=== PATIENT | male | born 1990 | race Caucasian/White ===

== ENCOUNTER 2021-08-21 21:56 | Emergency (ER) | payer SELFPAY ==
[~2021-08-21] VITALS: Ht 160 cm; Wt 67.3 kg
[~2021-08-21 21:56] MED LIST: ASPI-825 PO
[2021-08-21] MEDS ORDERED: ALLO-45 PO (22:15)
[2021-08-21 22:49] LABS: BASOPHILS % (AUTO) 0.6 % (0.0-2.0); EOSINOPHILS % (AUTO) 1.4 % (1.0-6.0); HEMATOCRIT 49.4 % (41-53); HEMOGLOBIN 17.1 g/dL (13.5-17.5); LYMPHOCYTES # (AUTO) 2.6 K/uL (1.0-4.8); LYMPHOCYTES % (AUTO) 34.3 % (22.0-44.0); MEAN CORPUSCULAR HEMOGLOBIN 30.7 pg (26.0-34.0); MEAN CORPUSCULAR HGB CONC 34.5 G/dL (31.0-37.0); MEAN CORPUSCULAR VOLUME 89 fL (80-100); MONOCYTES % (AUTO) 13.3 % (2.0-9.0); NEUTROPHILS # (AUTO) 3.9 K/uL (1.8-7.7); NEUTROPHILS % (AUTO) 50.4 % (40.0-70.0); PLATELET COUNT (AUTO) 348 K/uL (150-450); RED BLOOD CELL COUNT(AUTO) 5.56 MIL/uL (4.50-5.90); RED CELL DISTRIBUTION WIDTH 12.9 % (11.5-14.5)
[2021-08-21 22:59] LABS: ANION GAP 7 mmol/L (8-16); CALCIUM, TOTAL 9.3 mg/dL (8.8-10.5); CARBON DIOXIDE 26 mmol/L (22-29); CHLORIDE 101 mmol/L (98-107); CREATININE 0.99 mg/dL (0.60-1.30); GLOMERULAR FILTR. RATE CALC > 60 mL/min (>60); GLUCOSE,RANDOM 106 mg/dL (70-110); POTASSIUM 3.7 mmol/L (3.5-5.1); SODIUM SERUM 134 mmol/L (136-145); UREA NITROGEN, BLOOD 18 mg/dL (7-18)
[2021-08-21 23:02] LABS: PROTHROMBIN TIME 10.7 SEC (9.4-11.6)
[2021-08-21 23:05] LABS: ALANINE AMINOTRANSFERASE 130 U/L (12-78); ALBUMIN 4.1 g/dL (3.4-5.0); ALKALINE PHOSPHATASE 134 U/L (46-116); ASPARTATE AMINOTRANSFERASE 68 U/L (15-37); BILIRUBIN,TOTAL 0.9 mg/dL (0.1-1.0); TOTAL PROTEIN, SERUM 8.1 g/dL (6.4-8.2)
[2021-08-21] MEDS ORDERED: ACYCLOVIR 200 MG CAPSULE PO ONE (23:45)
[2021-08-21] MEDS ORDERED: PredniSONE 20 MG TABLET PO ONE (23:45)
[2021-08-22] VITALS: BP 140/89
[2021-08-22] MEDS ORDERED: HYPROMELLOSE 0.5% 15 ML OPHTHALMIC SOLUTION OS ONE
== END 2021-08-22 01:01 | disposition home or self-care (01) ==
LOC: EMS 22:01
DX: G51.0 Bell's palsy (principal); R74.8 Abnormal levels of other serum enzymes; Z79.899 Other long term (current) drug therapy
CPT/HCPCS: 36415; 70450; 80053; 84484; 85025; 85610; 85730; 86850; 86900; 86901; 93005; 99285; J7512